=== PATIENT | female | born 1960 | race Caucasian/White ===

== ENCOUNTER 2017-06-28 12:57 | Observation (INO) | payer OTHER ==
[~2017-06-28] VITALS: Ht 160 cm; Wt 92.5 kg
[~2017-06-28 12:57] MED LIST: AMLO10TA PO; BENA40TA PO; FERR325E14 PO; THYR60TA7 PO
--- NOTE | 2017-06-28 13:01 | NUR ---
CALLED PT FOR TRIAGE ASSESSMENT, PT IN BATHROOM.
--- NOTE | 2017-06-28 13:03 | NUR ---
57/F BIB SON C/O N/V & MID CHEST PAIN RADIATING DOWN LEFT ARM X30 MINUTES. HX HTN, DM, HYPERLIPIDEMIA.SKIN IS PINK/WARM/DRY; AAOX4 WITH EVEN AND STEADY GAIT; LUNGS CLEAR BL; PATIENT STATES PAIN OF 10/10 AT THIS TIME. PATIENT POSITIONED FOR COMFORT; HOB ELEVATED; BEDRAILS UP X2; BED DOWN. ER MD MADE AWARE OF PT STATUS.
[2017-06-28 13:06] VITALS: BP 187/95
--- NOTE | 2017-06-28 13:11 | NUR ---
Patient to bed 10.
[2017-06-28] MEDS ORDERED: FURO-572 PO (13:18)
[2017-06-28] MEDS ORDERED: METF1000 PO (13:18)
[2017-06-28] MEDS ORDERED: BENA40TA PO (13:18)
[2017-06-28] MEDS ORDERED: ATOR20TA PO (13:18)
[2017-06-28] MEDS ORDERED: VITA20002 PO (13:18)
[2017-06-28] MEDS ORDERED: ASPI81CT95 PO (13:18)
[2017-06-28] MEDS ORDERED: ASPIRIN 81 MG TAB.CHEW PO ONE (13:50)
--- NOTE | 2017-06-28 13:50 | NUR ---
Dr. Marie evaluating patient at bedside.
--- NOTE | 2017-06-28 13:57 | NUR ---
X RAY AT BEDSIDE
[2017-06-28] MEDS ORDERED: MORPHINE SULFATE 2 MG/ML SYR IVP ONE (14:10)
[2017-06-28] MEDS ORDERED: NITROGLYCERIN 2% 1 GM PKT TP ONE (14:10)
[2017-06-28] MEDS ORDERED: ONDANSETRON 4 MG/2 ML VIAL IVP ONE ×2 (14:10→15:20)
--- NOTE | 2017-06-28 14:15 | NUR ---
PT N/V ; NOTIFIED DR SANDERSON.VERNA ORDERED.
[2017-06-28 14:30] LABS: BASOPHILS # (AUTO) 0.2 K/uL (0.00-0.22); BASOPHILS % (AUTO) 1.7 % (0.0-2.0); EOSINOPHILS # (AUTO) 0.1 K/uL (0-0.4); EOSINOPHILS % (AUTO) 0.8 % (0.0-4.0); HEMATOCRIT 43.8 % (36-48); HEMOGLOBIN 14.6 g/dL (12.0-16.0); LYMPHOCYTES # (AUTO) 1.5 K/uL (2.5-16.5); LYMPHOCYTES % (AUTO) 10.4 % (20.5-51.1); MEAN CORPUSCULAR HEMOGLOBIN 29 pg (27-31); MEAN CORPUSCULAR HGB CONC 33 g/dL (33-37); MEAN CORPUSCULAR VOLUME 86 fL (80-94); MONOCYTES # (AUTO) 0.4 K/uL (0.8-1.0); MONOCYTES % (AUTO) 2.6 % (1.7-9.3); NEUTROPHILS # (AUTO) 12.4 K/uL (1.8-7.7); NEUTROPHILS % (AUTO) 84.5 % (42.2-75.2); PLATELET COUNT (AUTO) 312 K/uL (140-450); RED BLOOD CELL COUNT(AUTO) 5.12 MIL/uL (4.20-5.40); WHITE BLOOD COUNT (AUTO) 14.6 K/uL (4.8-10.8)
[2017-06-28 14:41] LABS: ANION GAP 18.1 (8-16); CARBON DIOXIDE 27.2 mmol/L (21-32); POTASSIUM 3.3 mmol/L (3.5-5.1)
[2017-06-28 14:46] LABS: ALBUMIN 4.1 g/dL (3.4-5.0); TOTAL BILIRUBIN 0.4 mg/dL (0.0-1.0)
[2017-06-28 14:54] LABS: PROTHROMBIN TIME 11.1 secs (10.8-13.4)
[2017-06-28] MEDS ORDERED: POTASSIUM CHLORIDE 10 MEQ TABER PO ONE (15:10)
[2017-06-28] MEDS ORDERED: ACETAMINOPHEN 325 MG TAB PO ONE (15:15)
--- NOTE | 2017-06-28 15:32 | NUR ---
EKG AT BEDSIDE
--- NOTE | 2017-06-28 15:40 | NUR ---
Patient appears to be resting comfortably in bed.BP 149/99; HEADACHE 5/10, DENIES N/V OR CHEST PAIN; MD MADE AWARE. Respirations even and unlabored.WILL CONTINUE TO MONITER.
[2017-06-28] MEDS ORDERED: ENOXAPARIN 80 MG/0.8 ML SYR SUBQ ONE (16:05)
--- NOTE | 2017-06-28 16:16 | NUR ---
GAVE LEVONOX 90 MG IV
[2017-06-28] MEDS ORDERED: ONDANSETRON 4 MG/2 ML VIAL IVP PRN (16:20)
[2017-06-28] MEDS ORDERED: MORPHINE SULFATE 2 MG/ML SYR IVP PRN (16:20)
[2017-06-28 16:47] LABS: CHOL/HDL RATIO 3.6 (1-4.5)
[2017-06-28] MEDS ORDERED: metFORMIN 500 MG TAB PO SCH (17:00)
[2017-06-28 17:05] VITALS: BP 138/80
--- NOTE | 2017-06-28 17:05 | NUR ---
PATIENT ADMITTED TO THE UNIT. PATIENT AWAKE, ALERT AND ORIENTED. PATIENT ON ROOM AIR. NO S/S OF DISTRESS NOTED. PATIENT DENIES PAIN AT THIS TIME. SKIN IS INTACT. IV LINE NOTED TO THE RIGHT AC SALINE LOCKED. PATIENT ON TELE MONITORING. BED LOWERED WITH CALL LIGHT WITHIN REACH. WILL CONTINUE TO MONITOR
--- NOTE | 2017-06-28 17:10 | NUR ---
Patient will be admitted to care of DR VILLALOBOS. Admited to TELE. Will go to [id number]. Belongings list completed. Report to CHARGE
[2017-06-28] MEDS ORDERED: PNEUMOCOCCAL VACCINE 23 MCG/0.5 ML VIAL IMVAC SCH (18:05)
--- NOTE | 2017-06-28 19:21 | NUR ---
PATIENT REPORT GIVEN AT BEDSIDE. PATIENT ENDORSED IN STABLE CONDITION
--- NOTE | 2017-06-28 19:22 | NUR ---
PATIENT REPORT RECEIVED FROM MORNING NURSE. PATIENT IS AWAKE, ALERT, AND ORIENTED. NO SIGNS AND SYMPTOMS OF DISTRESS NOTED. NO COMPLAINTS OF PAIN AT THIS TIME. PATIENT'S FAMILY IS AT BEDSIDE. IV SITE NOTED ON RIGHT AC, SALINE LOCKED. BED IN LOWEST POSITION, SIDE RAILS UP AND CALL LIGHT WITHIN REACH. WILL CONTINUE TO MONITOR.
[2017-06-28] MEDS: ACETAMINOPHEN 325 MG TAB PO PRN ×2 (19:41→23:47)
[2017-06-28 20:00] VITALS: BP 131/71
[2017-06-28] MEDS ORDERED: INSULIN LISPRO SLIDING SCALE 100 UNITS/ML VIAL SUBQ PRN (22:30)
[2017-06-28] MEDS ORDERED: DEXTROSE 50% 50 ML SYR IVP PRN (22:30)
[2017-06-28 23:31] LABS: CREATINE KINASE MB 5.1 ng/mL (0-3.6)
[2017-06-29] VITALS: BP 140/82
--- NOTE | 2017-06-29 00:20 | NUR ---
RECEIVED CRITICAL LAB VALUE OF TROPONIN-4.531. PAGED DR. MARTINEZ. DR. MARTINEZ CALLED BACK AT 0000. ORDERS RECEIVED. WILL CALL BACK WITH FOLLOW UP STAT LABS. PATIENT IS RESTING COMFORTABLY IN BED, NO SIGNS AND SYMPTOMS OF DISTRESS NOTED. COMPLAINS OF 3/10 HEADACHE. MEDICATED ORDERED. NO COMPLAINTS OF CHEST PAIN AT THIS MOMENT. WILL CONTINUE TO MONITOR.
--- NOTE | 2017-06-29 01:20 | NUR ---
RECEIVED CRITICAL LAB VALUE OF TROPONIN-4.217, DR. MARTINEZ NOTIFIED. ORDERS RECEIVED. CHECKED ON PATIENT. NO SIGNS AND SYMPTOMS OF DISTRESS NOTED. PATIENT DENIES CHEST PAIN AND NO LONGER HAS HEADACHE. BREATHING EVEN AND UNLABORED. BED IN LOWEST POSITION, SIDE RAILS UP AND CALL LIGHT WITHIN REACH. WILL CONTINUE TO MONITOR.
[2017-06-29] MEDS ORDERED: ECOTRIN 81 MG TABEC PO SCH (01:25)
--- NOTE | 2017-06-29 02:15 | NUR ---
DR. MARTINEZ CALLED. HE ASKED ABOUT THE CARDIAC CONSULT THAT WAS ORDERED. I TOLD HIM THAT Boy GORDON IS SCHEDULED TO BE THE CARDIAC CONSULT IN THE MORNING. HE SAID HE WILL PERSONALLY CONTACT, DR. TALBOT ABOUT PATIENT.
--- NOTE | 2017-06-29 02:30 | NUR ---
CHECKED ON PATIENT. PATIENT IS ASLEEP, RESTING COMFORTABLY IN BED. NO SIGNS AND SYMPTOMS OF DISTRESS NOTED. BREATHING EVEN AND UNLABORED. BED IN LOWEST POSITION, SIDE RAILS UP AND CALL LIGHT WITHIN REACH. WILL CONTINUE TO MONITOR.
[2017-06-29] MEDS: ACETAMINOPHEN 325 MG TAB PO PRN (03:59)
[2017-06-29 04:00] VITALS: BP 126/82
[2017-06-29 07:13] LABS: BASOPHILS # (AUTO) 0.3 K/uL (0.00-0.22); BASOPHILS % (AUTO) 2.2 % (0.0-2.0); EOSINOPHILS # (AUTO) 0.1 K/uL (0-0.4); EOSINOPHILS % (AUTO) 1.1 % (0.0-4.0); HEMATOCRIT 39.5 % (36-48); HEMOGLOBIN 13.1 g/dL (12.0-16.0); LYMPHOCYTES # (AUTO) 2.5 K/uL (2.5-16.5); LYMPHOCYTES % (AUTO) 20.1 % (20.5-51.1); MEAN CORPUSCULAR HEMOGLOBIN 28 pg (27-31); MEAN CORPUSCULAR HGB CONC 33 g/dL (33-37); MEAN CORPUSCULAR VOLUME 86 fL (80-94); MONOCYTES # (AUTO) 0.6 K/uL (0.8-1.0); MONOCYTES % (AUTO) 4.9 % (1.7-9.3); NEUTROPHILS # (AUTO) 8.8 K/uL (1.8-7.7); NEUTROPHILS % (AUTO) 71.7 % (42.2-75.2); PLATELET COUNT (AUTO) 269 K/uL (140-450); RED BLOOD CELL COUNT(AUTO) 4.61 MIL/uL (4.20-5.40); RED CELL DISTRIBUTION WIDTH 11.8 % (11.6-13.7); WHITE BLOOD COUNT (AUTO) 12.3 K/uL (4.8-10.8)
--- NOTE | 2017-06-29 07:26 | NUR ---
PATIENT REPORT GIVEN TO MORNING NURSE. PATIENT IS IN STABLE CONDITION.
[2017-06-29] MEDS ORDERED: BLOOD GLUCOSE MONITORING 1 DEV DEV FS SCH (07:30)
--- NOTE | 2017-06-29 07:30 | NUR ---
RECEIVED PT REPORT AT BEDSIDE FROM NIGHT NURSE. PT IS AAOX4 AND SHOWS NO S/S OF ACUTE DISTRESS ON ROOM AIR. PT DENIES CHEST PAIN AND SOB. IV NOTED ON THE R AC SL. ON TELE MONITOR. SKIN INTACT. PT WAS EXPLAINED POC FOR TODAY AND VERBALIZED UNDERSTANDING. WILL CONTINUE TO MONITOR.
[2017-06-29 08:00] VITALS: BP 146/94
[2017-06-29 08:14] LABS: ALBUMIN 3.5 g/dL (3.4-5.0); CARBON DIOXIDE 28.5 mmol/L (21-32); CREATININE 0.7 mg/dL (0.6-1.3); MAGNESIUM 1.5 mg/dL (1.8-2.4); POTASSIUM 3.5 mmol/L (3.5-5.1); TOTAL BILIRUBIN 0.4 mg/dL (0.0-1.0)
--- NOTE | 2017-06-29 08:26 | NUR ---
SPOKE WITH DR Boy TALBOT. PLACED ORDERS FOR [facility]. WILL PLACE ORDERS. LOVE WAS NOTIFIED.
--- NOTE | 2017-06-29 08:41 | NUR ---
PATIENT HAS BEEN SCREENED AND CATEGORIZED MODERATE NUTRITION RISK. PATIENT WILL BE SEEN WITHIN 3-5 DAYS OF ADMISSION. 07/01/17-07/03/[address]
--- NOTE | 2017-06-29 08:45 | NUR ---
SPOKE WITH DR Boy TALBOT REGARDING PT'S TROPONIN OF 2.055. DR ORDERED TO HAVE NS @ 150ML/HR, DC LOVENOX 40 MG SQ, AND GIVE HEPARIN 5,OOO UNITS SQ ONCE, AND PT WILL BE SCHEDULED AT 1300 FOR CARDIO CATH IN [facility]. PT IS TO BE TX BY 11 AM. CM WAS NOTIFIED.
[2017-06-29] MEDS ORDERED: NACL 0.9% 1,000 ML IV SCH (08:50)
[2017-06-29] MEDS ORDERED: BENAZEPRIL 20 MG TAB PO SCH ×2 (09:00)
[2017-06-29] MEDS ORDERED: ASPIRIN 325 MG TAB PO SCH (09:00)
[2017-06-29] MEDS ORDERED: ENOXAPARIN 40 MG/0.4 ML SYR SUBQ SCH (09:00)
[2017-06-29] MEDS ORDERED: METOPROLOL 50 MG TAB PO SCH (09:00)
[2017-06-29] MEDS ORDERED: ATORVASTATIN 20 MG TAB PO SCH (09:00)
--- NOTE | 2017-06-29 09:00 | NUR ---
CM NOTE RECEIVED ORDER FOR TRANSFER TO [facility]. [facility] DECEMBER PH# [phone] WAS INFORMED OF THE ORDER. PER ANDREA OF [facility] PH# [phone], PATIENT HAS SCHEDULED PROCEDURE AT [address] Boy TALBOT AND HAS TO BE THERE BY 1100 TIME, TO PASS BY THEIR ER FIRST. FAXED CLINICAL INFO TO [facility] ATTN: ANDREA FAX# [phone]. SPOKE WITH ERVIN OF [facility] PH# [phone] TO SET UP PATIENT ACLS TRANSPORT BEARING GRINDER TIME 1000 TODAY GOING TO [facility], TO PASS BY THEIR ER FIRST. CHARGE NURSE MUMTAZ AWARE. Addendum: 06/29/17 at 0924 by Itzel Torres CM PER [facility] DECEMBER, [facility] TRANSPORT AUTH# [id number], [facility] AUTH# [id number]. [facility] AND [facility] AWARE.
[2017-06-29] MEDS ORDERED: MAG SULF 2000 MG/WATER PREMIX 50 ML IV SCH (09:15)
--- NOTE | 2017-06-29 09:21 | NUR ---
SPOKE WITH WILLIAM FROM [facility] APPLICATIONS SUPPORT LEAD IN [place] GAVE REPORT. VERBALIZED UNDERSTANDING. NOTIFIED DR Boy TALBOT ABOUT TRANSPORT AT 10 AM. HELD HEPARIN 5000 SQ ONCE.
--- NOTE | 2017-06-29 10:00 | NUR ---
PT HAS BEEN TRANSFERRED TO [facility] AND WAS DISCHARGED. [facility] IS ON UNIT. PT WAS GIVEN DISCHARGE INSTRUCTIONS. PT SIGNED ALL PAPERWORK AND ALL QUESTIONS ANSWERED. ALL BELONGINGS WITH PATIENT. IV STILL INTACT WITH IVF'S AND MAGNESIUM MEDICATION. [facility] EMT'S ARE AWARE. WRISTBANDS AND TELE MONITOR REMOVED. PT LEFT UNIT IN STABLE CONDITION AND NO C/O PAIN.
--- NOTE | 2017-06-29 10:52 | NUR ---
CM NOTE PATIENT ON OBSERVATION. CLINICAL INFO FAXED TO [facility] [phone] ATTN; LOVE NELI # [phone].
== END 2017-06-29 10:00 | disposition short-term general hospital (02) ==
LOC: MED 12:57 → MTU 16:43
PROVIDERS: ADMIT Internal Medicine; ATTEND Internal Medicine
DX: I21.4 Non-ST elevation (NSTEMI) myocardial infarction (principal); I10 Essential (primary) hypertension; E11.9 Type 2 diabetes mellitus without complications; E83.42 Hypomagnesemia; E66.9 Obesity, unspecified; I25.10 Atherosclerotic heart disease of native coronary artery without angina pectoris; Z23 Encounter for immunization
CPT/HCPCS: 36415; 71010; 80053; 80061; 82550; 82553; 82948; 83735; 83880; 84484; 85025; 85610; 85730; 87081; 90471; 90732; 93005; 96372; 96374; 96375; 96376; 99291; G0378; J1644; J1650; J2270; J2405; J3475; J7030; Q0092